=== PATIENT | female | born 1975 | race Caucasian/White ===

== ENCOUNTER 2016-10-26 19:03 | Emergency (ER) | payer BC ==
[2016-10-26 19:12] VITALS: BP 115/72
--- NOTE | 2016-10-26 20:15 | RAD ---
HISTORY: Left fifth toe trauma COMPARISONS: None VIEWS: 3, Frontal, lateral, and oblique views of the fifth digit of the left foot FINDINGS: BONE DENSITY: Normal. BONES: There is no displaced fracture. JOINTS: There is no arthropathy. ALIGNMENT: There is subluxation of the middle phalanx of the fifth digit with respect to the proximal phalanx at the fifth PIP joint SOFT TISSUES: Unremarkable. OTHER FINDINGS: None. IMPRESSION: LEFT FIFTH PIP JOINT SUBLUXATION WITHOUT APPRECIABLE FRACTURE. NO ACUTE OSSEOUS INJURY. IF SYMPTOMS PERSIST, RECOMMEND REPEAT IMAGING
--- NOTE | 2016-10-26 20:16 | ED ---
Lower Extremity - HPI Summary HPI Summary: 41F presents with left pinky toe pain s/p jamming her foot against something metal. she had a previous fracture and dislocation of the area years ago and states that is feels the same. She denies any numbness or tingling. She has taken ibuprofen. She has been able to ambulate with pain. - History of Current Complaint Chief Complaint: EDExtremityLower Stated Complaint: LT PINKY TOE INJURY Time Seen by Provider: 10/26/16 19:18 Pain Intensity: 2 - Allergies/Home Medications Allergies/Adverse Reactions: Allergies Allergy/AdvReac Type Severity Reaction Status Date / Time No Known Allergies Allergy Verified 10/26/16 19:12 PMH/Surg Hx/FS Hx/Imm Hx Endocrine/Hematology History: Denies: Hx Anticoagulant Therapy Respiratory History: Denies: Hx Asthma Infectious Disease History: No Infectious Disease History: Denies: Traveled Outside the [place] in Last 30 Days - Family History Known Family History: Positive: Cardiac Disease - Social History Alcohol Use: None Substance Use Type: Reports: None Smoking Status (MU): Never Smoked Tobacco Review of Systems Negative: Fever Negative: Chest Pain Negative: Shortness Of Breath Positive: Myalgia - left pinky toe pain All Other Systems Reviewed And Are Negative: Yes Physical Exam Triage Information Reviewed: Yes Vital Signs On Initial Exam: Initial Vitals Temp Pulse Resp BP Pulse Ox 98.0 F 58 16 115/72 100 10/26/16 19:09 10/26/16 19:09 10/26/16 19:09 10/26/16 19:09 10/26/16 19:09 Vital Signs Reviewed: Yes Appearance: Positive: Well-Appearing Skin: Positive: Warm, Dry Head/Face: Positive: Normal Head/Face Inspection Eyes: Positive: Normal, Conjunctiva Clear Respiratory/Lung Sounds: Positive: Clear to Auscultation, Breath Sounds Present Cardiovascular: Positive: Normal, RRR Musculoskeletal: Positive: Limited @ - left pinky toe, Other - states that DIP area is most tender and feels that area is malformed to patient, good pulses, capillary refull<2 secs, Procedures - Joint Reduction Joint Reduction Site: other Specify Other Joint Reduced: left pinky toe Conscious Sedation: No - local block Reduction Attempts: 2 Pre-Procedure NV Exam: Yes Diagnostics - Vital Signs Vital Signs Temp Pulse Resp BP Pulse Ox 10/26/16 19:28 98.8 F 58 16 115/72 100 10/26/16 19:09 98.0 F 58 16 115/72 100 - Laboratory Lab Statement: Any lab studies that have been ordered have been reviewed, and results considered in the medical decision making process. - Radiology toe Xray Interpretation: Positive (See Comments) - IMPRESSION: LEFT FIFTH PIP JOINT SUBLUXATION WITHOUT APPRECIABLE FRACTURE. NO ACUTE OSSEOUS INJURY. IF SYMPTOMS PERSIST, RECOMMEND REPEAT IMAGING Radiology Interpretation Completed By: Radiologist Lower Extremity Course/Dx - Course Course Of Treatment: 41F presents with left pinky toe pain s/p jamming her foot against something metal. she had a previous fracture and dislocation of the area years ago and states that is feels the same. She denies any numbness or tingling. She has taken ibuprofen. She has been able to ambulate with pain. on exam tender over left pinky. xray shows subluxation, performed digital block and was able to reduce toe, francheska taped the area. patient understands and agrees with plan - Diagnoses Differential Diagnosis/HQI/PQRI: Positive: Dislocation, Fracture (Closed), Strain Provider Diagnoses: Subluxation of left toe Discharge - Discharge Plan Condition: Good Disposition: HOME Referrals: Non Staff,Doctor [Primary Care Provider] - Additional Instructions: Wear firm shoes Place ice on area Take ibuprofen every 6 hours for pain Follow up with podiatry if symptoms persist after a week Return to ED if develop any new or worsening symptoms
== END 2016-10-26 21:23 | disposition home or self-care (01) ==
LOC: ED 19:03
DX: S93.102A Unspecified subluxation of left toe(s), initial encounter (principal); W22.8XXA Striking against or struck by other objects, initial encounter; Y93.9 Activity, unspecified; Y92.9 Unspecified place or not applicable
CPT/HCPCS: 99281